=== PATIENT | female | born 1990 | race American Indian/Alaskan Native ===

== ENCOUNTER 2020-07-02 20:36 | Emergency (ER) | payer OTHER ==
--- NOTE | 2020-07-02 21:33 | Event Note ---
ED Screening Note Date of service: 07/02/20 Time: 21:29 ED Screening Note: C/o spotty vaginal bleeding and lower abdominal cramping x 9 day states +preg test at home, however has tubes tide denies vaginal discharge or urinary sxs This initial assessment/diagnostic orders/clinical plan/treatment(s) is/are subject to change based on patients health status, clinical progression and re- assessment by fellow clinical providers in the ED. Further treatment and workup at subsequent clinical providers discretion. Patient/guardian urged not to elope from the ED as their condition may be serious if not clinically assessed and managed. Initial orders include: UA
[2020-07-02 22:06] VITALS: BP 129/76
[2020-07-02] MEDS ORDERED: HYDROcodone/ACETAMINOPHEN 10-325MG TAB PO ONE (22:35)
[2020-07-02 23:10] LABS: Bacteria,Urine 1+ /HPF (Negative); Bilirubin,Urine NEG (Negative); Blood,Urine NEG (Negative); Color,Urine Yellow (Yellow); Mucus,Urine 3+ /HPF; Protein,Urine <15 mg/dL mg/dL (Negative)
--- NOTE | 2020-07-02 23:23 | Emergency Department Report ---
ED Female HPI - General Chief complaint: Vaginal Bleeding Stated complaint: SPOTTING/LOWER ABD PAIN Time Seen by Provider: 07/02/20 21:28 Source: patient Mode of arrival: Ambulatory Limitations: No Limitations - History of Present Illness Initial comments: This is a 30-year-old female nontoxic, well nourished in appearance, no acute signs of distress presents to the ED with c/o of vaginal bleeding and pelvic pain x1 day. Patient denies any abdominal pain. Patient denies any vaginal discharge or foul odor. Patient denies any nausea, vomiting, chest pain, shortness of breathe, fever, chills, headache, stiff neck, numbness, tingling. Patient denies any urinary symptoms. Patient denies any allergies. Patient stated has her tubes tied. MD Complaint: vaginal bleeding, pelvic pain -: days(s) Radiation: non-radiating Severity: mild Severity scale (0 -10): 8 Quality: cramping, aching Consistency: constant Improves with: none Worsens with: none Associated Symptoms: vaginal bleeding. denies: vaginal discharge, abdominal pain, nausea/vomiting, fever/chills, headaches, loss of appetite, dysuria, hematuria, rash, seizure, shortness of breath, syncope, weakness - Related Data Previous Rx's Medication Instructions Recorded Last Taken Type Naproxen 500 mg PO Q12H PRN #12 tablet 07/03/20 Unknown Rx metroNIDAZOLE [Flagyl] 500 mg PO Q12HR #14 tab 07/03/20 Unknown Rx ED Review of Systems ROS: Stated complaint: SPOTTING/LOWER ABD PAIN Other details as noted in HPI Constitutional: denies: chills, fever Eyes: denies: eye pain, eye discharge, vision change ENT: denies: ear pain, throat pain Respiratory: denies: cough, shortness of breath, wheezing Cardiovascular: denies: chest pain, palpitations Endocrine: no symptoms reported Gastrointestinal: denies: abdominal pain, nausea, diarrhea Genitourinary: abnormal menses. denies: urgency, dysuria, discharge Musculoskeletal: denies: back pain, joint swelling, arthralgia Skin: denies: rash, lesions Neurological: denies: headache, weakness, paresthesias Psychiatric: denies: anxiety, depression Hematological/Lymphatic: denies: easy bleeding, easy bruising ED Past Medical Hx - Medications Home Medications: Home Medications Medication Instructions Recorded Confirmed Last Taken Type Naproxen 500 mg PO Q12H PRN #12 tablet 07/03/20 Unknown Rx metroNIDAZOLE [Flagyl] 500 mg PO Q12HR #14 tab 07/03/20 Unknown Rx ED Physical Exam - General Limitations: No Limitations General appearance: alert, in no apparent distress - Head Head exam: Present: atraumatic, normocephalic - Eye Eye exam: Present: normal appearance - Neck Neck exam: Present: normal inspection, full ROM. Absent: tenderness, meningismus, lymphadenopathy - Respiratory Respiratory exam: Present: normal lung sounds bilaterally. Absent: respiratory distress, wheezes, rales, rhonchi, stridor, chest wall tenderness, accessory muscle use, decreased breath sounds, prolonged expiratory - Cardiovascular Cardiovascular Exam: Present: regular rate, normal rhythm, normal heart sounds. Absent: bradycardia, tachycardia, irregular rhythm, systolic murmur, diastolic murmur, rubs, gallop - GI/Abdominal GI/Abdominal exam: Present: soft, normal bowel sounds. Absent: distended, tenderness, guarding, rebound, rigid, diminished bowel sounds - External exam: Present: other (Spring Bender Kenia RN present during exam). Absent: erythema, swelling, lesions, lacerations, ecchymosis, bleeding Speculum exam: Present: cervical discharge, vaginal bleeding (very minimal), other (Spring Bender Kenia RN present during exam). Absent: erythema, vaginal discharge, foreign body, tissue, laceration Bi-manual exam: Present: normal bi-manual exam, other (Spring Bender Keina RN present during exam). Absent: cervical motion tendernes, adnexal tenderness, adnexal mass, uterine enlargement, uterine tenderness - Extremities Exam Extremities exam: Present: normal inspection, full ROM - Back Exam Back exam: Present: normal inspection, full ROM. Absent: tenderness, CVA tenderness (R), CVA tenderness (L), muscle spasm, paraspinal tenderness, vertebral tenderness, rash noted - Neurological Exam Neurological exam: Present: alert, oriented X3, normal gait - Psychiatric Psychiatric exam: Present: normal affect, normal mood - Skin Skin exam: Present: warm, dry, intact, normal color. Absent: rash ED Course Vital Signs 07/02/20 21:30 Temperature 98.3 F Pulse Rate 73 Respiratory 20 Rate Blood Pressure 129/76 O2 Sat by Pulse 100 Oximetry - Reevaluation(s) Reevaluation #1: 07/02/20 23:23 Patient is speaking in full sentences with no signs of distress noted. - Consultations Consultation #1: 07/03/20 03:15 Patient has been consulted with Dr. Oh about patient history, physical exam, and labs/US report and agrees to ED plan of care with OB consult. Consultation #2: 07/03/20 03:41 Patient has been consulted with Dr. Mejia (OBGYN) about patient history, physical exam, and labs/US report and patient can be discharged with follow-up in her office 3-5 days. ED Medical Decision Making - Lab Data Result diagrams: 07/02/20 22:45 07/02/20 22:45 Lab Results 07/02/20 07/02/20 07/02/20 Range/Units 22:41 22:45 22:45 WBC 6.5 (4.5-11.0) K/mm3 RBC 4.40 (3.65-5.03) M/mm3 Hgb 11.7 (10.1-14.3) gm/dl Hct 37.0 (30.3-42.9) % MCV 84 (79-97) fl MCH 27 L (28-32) pg MCHC 32 (30-34) % RDW 14.5 (13.2-15.2) % Plt Count 340 (140-440) K/mm3 Lymph % (Auto) 43.6 H (13.4-35.0) % [place] % (Auto) 6.6 (0.0-7.3) % Eos % (Auto) 1.2 (0.0-4.3) % Baso % (Auto) 0.5 (0.0-1.8) % Lymph # 2.8 (1.2-5.4) K/mm3 [place] # 0.4 (0.0-0.8) K/mm3 Eos # 0.1 (0.0-0.4) K/mm3 Baso # 0.0 (0.0-0.1) K/mm3 Seg Neutrophils % 48.1 (40.0-70.0) % Seg Neutrophils # 3.1 (1.8-7.7) K/mm3 Sodium 141 (137-145) mmol/L Potassium 3.9 (3.6-5.0) mmol/L Chloride 103.4 (98-107) mmol/L Carbon Dioxide 25 (22-30) mmol/L Anion Gap 17 mmol/L BUN 11 (7-17) mg/dL Creatinine 0.8 (0.6-1.2) mg/dL Estimated GFR > 60 ml/min BUN/Creatinine Ratio 14 % Glucose 84 (65-100) mg/dL Calcium 9.0 (8.4-10.2) mg/dL Total Bilirubin 0.30 (0.1-1.2) mg/dL AST 18 (5-40) units/L ALT 14 (7-56) units/L Alkaline Phosphatase 88 (35-129) units/L Total Protein 7.6 (6.3-8.2) g/dL Albumin 4.3 (3.9-5) g/dL Albumin/Globulin Ratio 1.3 % HCG, Quant (0-4) mIU/mL Urine Color Yellow (Yellow) Urine Turbidity Clear (Clear) Urine pH 5.0 (5.0-7.0) Ur Specific [place] 1.030 (1.003-1.030) Urine Protein <15 mg/dl (Negative) mg/dL Urine Glucose (UA) Neg (Negative) mg/dL Urine Ketones Neg (Negative) mg/dL Urine Blood Neg (Negative) Urine Nitrite Neg (Negative) Urine Bilirubin Neg (Negative) Urine Urobilinogen 2.0 (<2.0) mg/dL Ur Leukocyte Esterase Neg (Negative) Urine WBC (Auto) 2.0 (0.0-6.0) /HPF Urine RBC (Auto) 3.0 (0.0-6.0) /HPF U Epithel Cells (Auto) 6.0 (0-13.0) /HPF Urine Bacteria (Auto) 1+ (Negative) /HPF Urine Mucus 3+ /HPF Urine HCG, Qual (Negative) 07/02/20 07/03/20 Range/Units 22:45 00:21 WBC (4.5-11.0) K/mm3 RBC (3.65-5.03) M/mm3 Hgb (10.1-14.3) gm/dl Hct (30.3-42.9) % MCV (79-97) fl MCH (28-32) pg MCHC (30-34) % RDW (13.2-15.2) % Plt Count (140-440) K/mm3 Lymph % (Auto) (13.4-35.0) % [place] % (Auto) (0.0-7.3) % Eos % (Auto) (0.0-4.3) % Baso % (Auto) (0.0-1.8) % Lymph # (1.2-5.4) K/mm3 [place] # (0.0-0.8) K/mm3 Eos # (0.0-0.4) K/mm3 Baso # (0.0-0.1) K/mm3 Seg Neutrophils % (40.0-70.0) % Seg Neutrophils # (1.8-7.7) K/mm3 Sodium (137-145) mmol/L Potassium (3.6-5.0) mmol/L Chloride (98-107) mmol/L Carbon Dioxide (22-30) mmol/L Anion Gap mmol/L BUN (7-17) mg/dL Creatinine (0.6-1.2) mg/dL Estimated GFR ml/min BUN/Creatinine Ratio % Glucose (65-100) mg/dL Calcium (8.4-10.2) mg/dL Total Bilirubin (0.1-1.2) mg/dL AST (5-40) units/L ALT (7-56) units/L Alkaline Phosphatase (35-129) units/L Total Protein (6.3-8.2) g/dL Albumin (3.9-5) g/dL Albumin/Globulin Ratio % HCG, Quant 0.580 (0-4) mIU/mL Urine Color (Yellow) Urine Turbidity (Clear) Urine pH (5.0-7.0) Ur Specific [place] (1.003-1.030) Urine Protein (Negative) mg/dL Urine Glucose (UA) (Negative) mg/dL Urine Ketones (Negative) mg/dL Urine Blood (Negative) Urine Nitrite (Negative) Urine Bilirubin (Negative) Urine Urobilinogen (<2.0) mg/dL Ur Leukocyte Esterase (Negative) Urine WBC (Auto) (0.0-6.0) /HPF Urine RBC (Auto) (0.0-6.0) /HPF U Epithel Cells (Auto) (0-13.0) /HPF Urine Bacteria (Auto) (Negative) /HPF Urine Mucus /HPF Urine HCG, Qual Negative (Negative) - Radiology Data Referring Physician: YOJANA MOYER Patient Name: PANFILO BRAGG Date of : 1990 Sex: Female Report Date: 2020-07-03 Report Status: Finalized [facility] [address] [place] [address] Ultrasound Report Signed Patient: PANFILO BRAGG MR#: [id number] : 1990 Acct:[id number] Age/Sex: 30 / F ADM Date: 07/02/20 Loc: ED Attending Dr: Ordering Physician: YOJANA MOYER NP Date of Service: 07/03/20 Procedure(s): US pelvis duplex doppler comp Accession Number(s): [id number] cc: YOJANA MOYER NP ULTRASOUND PELVIS, COMPLETE INDICATION: Pelvic pain COMPARISON: No relevant prior imaging study available. FINDINGS: Transabdominal ultrasound was performed. Uterus: The uterus has a normal sonographic appearance and size. The uterus measures 9.8 x 4.7 x 6.9 cm. Endometrial stripe is of normal thickness measuring 4 mm. No focal uterine mass identified.. Right ovary: No significant abnormality. The right ovary measures 2.9 x 1.4 x 1.8 cm. No ovarian masses or cyst. Left ovary: No significant abnormality. Left ovary measures 3.4 x 1.8 x 2.9 cm. No ovarian mass or cyst Both ovaries demonstrate normal ovarian blood flow. Additional findings: There is no free fluid in the pelvis. Urinary bladder is unremarkable. IMPRESSION: Normal pelvic ultrasound.. Signer Name: Mary Nowak MD Signed: 07/03/2020 1:47 AM Workstation Name: [id number] Transcribed By: Dictated By: Mary Nowak MD [facility] Authenticated By: Mary Nowak MD Signed Date/Time: 07/03/20146 DD/ 4 TD/TT: - Medical Decision Making This is a 30-year-old female that presents with dysmenorrhea and BV. Patient is stable and was examined by me. Patient is notified of the ultrasound report with no questions noted by the patient. Patient's pain is currently under control in the ER. Patient was instructed to follow-up with a [facility] doctor in 3-5 days or if symptoms worsen and continue return to emergency room as soon as possible. At time of discharge, the patient does not seem toxic or ill in appearance. No acute signs of distress noted. Patient agrees to discharge treatment plan of care. No further questions noted by the patient. Critical care attestation.: If time is entered above; I have spent that time in minutes in the direct care of this critically ill patient, excluding procedure time. ED Disposition Clinical Impression: Dysmenorrhea, Bacterial vaginosis Disposition: TO HOME OR SELFCARE Is pt being admited?: No Does the pt Need Aspirin: No Condition: Stable Instructions: Dysmenorrhea (ED), Bacterial Vaginosis (ED), Metronidazole (By mouth) Additional Instructions: Follow-up with a OBGYN doctor in 3-5 days or if symptoms worsen and continue return to emergency room as soon as possible. Prescriptions: metroNIDAZOLE [Flagyl] 500 mg PO Q12HR #14 tab Naproxen 500 mg PO Q12H PRN #12 tablet PRN Reason: Pain , Severe (7-10) Referrals: [facility] [Primary Care Provider] - 3-5 Days [facility] [Provider Group] - 3-5 Days [facility] [Provider Group] - 3-5 Days Forms: Work/School Release Form(ED) Time of Disposition: 02:28
[2020-07-02 23:56] LABS: Alanine Aminotransferase 14 units/L (7-56); Albumin 4.3 g/dL (3.9-5); BUN/Creatinine Ratio 14; Blood Urea Nitrogen 11 mg/dL (7-17); Hemolysis Index 31
[2020-07-02 23:57] LABS: Basophils % (Auto) 0.5 % (0.0-1.8); Eosinophils # (Auto) 0.1 K/mm3 (0.0-0.4); Eosinophils % (Auto) 1.2 % (0.0-4.3); Hemoglobin 11.7 gm/dl (10.1-14.3); Lymphocytes # (Auto) 2.8 K/mm3 (1.2-5.4); Lymphocytes % (Auto) 43.6 % (13.4-35.0); Mean Corpuscular HGB Conc 32 % (30-34); Mean Corpuscular Volume 84 fl (79-97); Monocytes # (Auto) 0.4 K/mm3 (0.0-0.8); Monocytes % (Auto) 6.6 % (0.0-7.3); Platelet Count 340 K/mm3 (140-440); Red Cell Distribution Width 14.5 % (13.2-15.2)
[2020-07-03 00:35] LABS: HCG Qualitative,Urine Negative (Negative)
--- NOTE | 2020-07-03 01:52 | Ultrasound Report ---
ULTRASOUND PELVIS, COMPLETE INDICATION: Pelvic pain COMPARISON: No relevant prior imaging study available. FINDINGS: Transabdominal ultrasound was performed. Uterus: The uterus has a normal sonographic appearance and size. The uterus measures 9.8 x 4.7 x 6.9 cm. Endometrial stripe is of normal thickness measuring 4 mm. No focal uterine mass identified.. Right ovary: No significant abnormality. The right ovary measures 2.9 x 1.4 x 1.8 cm. No ovarian mas ses or cyst. Left ovary: No significant abnormality. Left ovary measures 3.4 x 1.8 x 2.9 cm. No ovarian mass or cy st Both ovaries demonstrate normal ovarian blood flow. Additional findings: There is no free fluid in the pelvis. Urinary bladder is unremarkable. IMPRESSION: Normal pelvic ultrasound.. Signer Name: Mary Nowak MD Signed: 07/03/2020 1:47 AM Workstation Name: [email or web address]
== END 2020-07-03 04:15 | disposition home or self-care (01) ==
LOC: ED 20:36
DX: N76.0 Acute vaginitis (principal); B96.89 Other specified bacterial agents as the cause of diseases classified elsewhere; N94.6 Dysmenorrhea, unspecified; Z79.899 Other long term (current) drug therapy
CPT/HCPCS: 36415; 80053; 81001; 81025; 84702; 85025; 87210; 87591; 93975